=== PATIENT | female | born 1995 | race Caucasian/White ===

== ENCOUNTER → 2017-02-17 | Outpatient (CLI) | payer BC ==
[~2017-02-17] MED LIST: MEDR150I IM; MEDR1INJ3 INJ; OMEP20TA PO; OXCA600T PO; OXCA600T2 PO; TRL300
== END | disposition home or self-care (01) ==
LOC: C.PAPS 18:13
PROVIDERS: ATTEND Obstetrics & Gynecology
DX: Z01.419 Encounter for gynecological examination (general) (routine) without abnormal findings (principal); Z11.3 Encounter for screening for infections with a predominantly sexual mode of transmission

== ENCOUNTER 2017-04-14 18:54 | Emergency (ER) | payer BC ==
[~2017-04-14] VITALS: Ht 165.1 cm; Wt 57.6 kg
[~2017-04-14 18:54] MED LIST changes: -MEDR1INJ3 INJ
[2017-04-14 18:56] VITALS: TEMP 37; Ht 165.1 cm; Wt 57.6 kg
[2017-04-14] MEDS ORDERED: SODIUM CHLORIDE 0.9% 1000ML 1,000 ML IV STA (19:09)
[2017-04-14] MEDS ORDERED: MEDR1INJ3 INJ (19:31)
[2017-04-14 19:45] LABS: BASO % 0.4 %; BASO ABS # 0.02 K/uL (0-0.2); COMPLETE YES; EOS % 0.4 %; HEMATOCRIT 43.4 % (37-47); IG% 0.2 %; LYMPH % 27.2 %; LYMPH ABS # 1.26 K/uL (1.2-3.4); MEAN CELL VOLUME 95.4 fL (80-100); MEAN CORPUSCULAR HEMOGLOBIN 32.5 pg (25-34); MEAN CORPUSCULAR HGB CONC 34.1 g/dl (32-36); MEAN PLATELET VOLUME 9.9 fL (7.4-10.4); MONO % 6.3 %; NEUT % 65.5 %; PLATELET COUNT 200 K/uL (130-400); RED BLOOD COUNT 4.55 M/uL (4.2-5.4); WHITE BLOOD COUNT 4.64 K/uL (4.8-10.8)
[2017-04-14 19:56] LABS: PROTHROMBIN TIME (PATIENT) 10.6 SECONDS (9.0-12.0)
[2017-04-14 20:10] LABS: BUN/CREATININE RATIO 12.3 (10-20); CALCIUM 9.5 mg/dl (8.5-10.1); CREATININE 0.78 mg/dl (0.60-1.20); MAGNESIUM 2.4 mg/dl (1.8-2.4); POTASSIUM 3.6 mmol/L (3.5-5.1)
--- NOTE | 2017-04-14 20:10 | DIAGNOSTIC IMAGING REPORT ---
CT OF THE HEAD WITHOUT CONTRAST CLINICAL HISTORY: Seizure. COMPARISON STUDY: Head CT March 21, 2014. CT DOSE: 537.48 mGy.cm TECHNIQUE: Helical axial images of the head were obtained without IV contrast. Automated exposure control was utilized for the study. FINDINGS: No acute intracranial hemorrhage, midline shift or mass effect is present. A right temporal craniotomy is noted. There is encephalomalacia within the right temporal lobe with volume loss. Ventricular system is unremarkable. Basilar cisterns are patent. There are no extra axial collections. There are no findings to suggest acute dural sinus thrombosis or acute territorial infarct. There is no calvarial fracture. IMPRESSION: 1. No acute intracranial findings. 2. Status post right temporal craniotomy with encephalomalacia within the right temporal lobe. Electronically signed by: Mehrdad Resendez M.D. 04/14/2017 8:09 PM Dictated Date/Time: 04/14/2017 8:06 PM
[2017-04-14 20:32] LABS: PHOSPHORUS 1.4 mg/dl (2.5-4.9); THYROID STIMULATING HORMONE 2.15 uIu/ml (0.300-4.500)
[2017-04-14 20:33] LABS: URINE APPEARANCE CLEAR (CLEAR); URINE BILIRUBIN NEG (NEG); URINE COLOR YELLOW; URINE NITRITE NEG (NEG); URINE PH 5.5 (4.5-7.5); URINE SPECIFIC GRAVITY 1.012 (1.000-1.030); UROBILINOGEN NEG (NEG)
[2017-04-14 20:38] LABS: MANUAL MICROSCOPIC REQUIRED? NO; REVIEW REQ? NO
[2017-04-14] MEDS ORDERED: POT PHOSPHATE MONOBASIC W/ SOD TAB PO STA (20:56)
[2017-04-14 21:54] VITALS: BP 131/82; PULSE 91; O2SAT 98
--- NOTE | 2017-04-14 23:38 | EMERGENCY ROOM VISIT NOTE ---
History Report prepared by Lianne: [facility] Under the Supervision of: Dr. Fausto Yousif D.O. First contact with patient: 19:06 Chief Complaint: SEIZURE Stated Complaint: SEIZURE History of Present Illness The patient is a 21 year old female who presents to the Emergency Room with complaints of an episode of a seizure beginning 45 minutes ago. The patient states that she has a history of seizures beginning 4 years ago. 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 The patient reports that she has not had a seizure since her surgery 2 years ago. 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 She reports that she was able to get up and walk around afterwards and was aware of her surroundings. The patient complains of neck pain. She denies any back pain, leg pain, abdominal pain, head pain, chest pain, shortness of breath, tongue bite, incontinence, history of hypertension, diabetes, heart disease, calf swelling, recent trips, and recent surgeries. She reports that she is on a control injection. She notes that she was previously on Topamax and Keppra but stopped after the surgery. She notes that her LNMP was a few weeks ago. Source of History: patient Onset: 45 minutes ago Position: other (seizure) Symptom Intensity: 2-3 minutes Quality: other (shaking) Timing: other (episode) Associated Symptoms: + neck pain, No headache, No chest pain, No SOB, No abdominal pain, No back pain Note: She denies any leg pain, abdominal pain,tongue bite, incontinence, calf swelling. Review of Systems See HPI for pertinent positives & negatives. A total of 10 systems reviewed and were otherwise negative. Past Medical & Surgical Medical Problems: (1) ADHD (attention deficit hyperactivity disorder) (2) Epilepsy (3) Exercise-induced asthma Surgical Problems: (1) Hx of wisdom tooth extraction Family History FHx: cancer FHx: diabetes FHx: heart disease FHx: hypertension Social History Smoking Status: Never Smoker Alcohol Use: occasionally Drug Use: marijuana Marital Status: single Housing Status: lives with family Occupation Status: employed Current/Historical Medications Scheduled Medroxyprogesterone Acetate (C (Depo-Provera Contraceptiv), 150 MG INJ Q3MO Allergies Coded Allergies: No Known Allergies (Unverified , 04/14/17) Physical Exam Vital Signs Date Time Temp Pulse Resp B/P (MAP) Pulse Ox O2 Delivery O2 Flow Rate FiO2 04/14/17 21:54 91 18 131/82 98 04/14/17 20:14 100 Room Air 04/14/17 20:14 101 18 123/80 100 Room Air 04/14/17 19:25 106 04/14/17 19:11 Room Air 04/14/17 18:56 37.0 106 20 136/86 95 Room Air Physical Exam GENERAL: sitting up in bed, alert, well appearing, well nourished, no distress, non-toxic HEAD: normal cephalic, atraumatic EYE EXAM: normal conjunctiva, PERRL and EOM's grossly intact OROPHARYNX: no exudate, no erythema, lips, buccal mucosa, and tongue normal and mucous membranes are moist EARS: TMs clear b/l NECK: supple, no nuchal rigidity, no adenopathy, non-tender CHEST: stable to compression anteriorly and posteriorly LUNGS: clear to auscultation. Normal chest wall mechanics HEART: no murmurs, S1 normal and S2 normal ABDOMEN: abdomen soft, non-tender, normo-active bowel sounds, no masses, no rebound or guarding. PELVIS: stable to compression anteriorly and posteriorly BACK: Back is symmetrical on inspection and there is no deformity, no midline tenderness, no CVA tenderness. Bilateral upper trapezius tenderness on palpation. UPPER EXTREMITIES: full active and passive range of motion of all joints without tenderness to palpation LOWER EXTREMITIES: full active and passive range of motion of all joints without tenderness to palpation NEURO EXAM: Normal sensorium, cranial nerves II-XII intact, normal speech, no weakness of arms, no weakness of upper or lower extremities. Rapid alternating movements of upper extremities intact. GCS: 15. Medical Decision & Procedures ER Provider Diagnostic Interpretation: Radiology results as stated below per my review and the radiologist's interpretation: CT OF THE HEAD WITHOUT CONTRAST FINDINGS: No acute intracranial hemorrhage, midline shift or mass effect is present. A right temporal craniotomy is noted. There is encephalomalacia within the right temporal lobe with volume loss. Ventricular system is unremarkable. Basilar cisterns are patent. There are no extra axial collections. There are no findings to suggest acute dural sinus thrombosis or acute territorial infarct. There is no calvarial fracture. IMPRESSION: 1. No acute intracranial findings. 2. Status post right temporal craniotomy with encephalomalacia within the right temporal lobe. Electronically signed by: Mehrdad Resendez M.D. 04/14/2017 8:09 PM Dictated Date/Time: 04/14/2017 8:06 PM Laboratory Results 04/14/17 19:22 Red Blood Count 4.55, Mean Corpuscular Volume 95.4, Mean Corpuscular Hemoglobin 32.5, Mean Corpuscular Hemoglobin Concent 34.1, Mean Platelet Volume 9.9, Neutrophils (%) (Auto) 65.5, Lymphocytes (%) (Auto) 27.2, Monocytes (%) (Auto) 6.3, Eosinophils (%) (Auto) 0.4, Basophils (%) (Auto) 0.4, Neutrophils # (Auto) 3.04, Lymphocytes # (Auto) 1.26, Monocytes # (Auto) 0.29, Eosinophils # (Auto) 0.02, Basophils # (Auto) 0.02 04/14/17 19:22 Test 04/14/17 19:22 04/14/17 20:10 White Blood Count 4.64 K/uL (4.8-10.8) Red Blood Count 4.55 M/uL (4.2-5.4) Hemoglobin 14.8 g/dL (12.0-16.0) Hematocrit 43.4 % (37-47) Mean Corpuscular Volume 95.4 fL (80-100) Mean Corpuscular Hemoglobin 32.5 pg (25-34) Mean Corpuscular Hemoglobin Concent 34.1 g/dl (32-36) Platelet Count 200 K/uL (130-400) Mean Platelet Volume 9.9 fL (7.4-10.4) Neutrophils (%) (Auto) 65.5 % Lymphocytes (%) (Auto) 27.2 % Monocytes (%) (Auto) 6.3 % Eosinophils (%) (Auto) 0.4 % Basophils (%) (Auto) 0.4 % Neutrophils # (Auto) 3.04 K/uL (1.4-6.5) Lymphocytes # (Auto) 1.26 K/uL (1.2-3.4) Monocytes # (Auto) 0.29 K/uL (0.11-0.59) Eosinophils # (Auto) 0.02 K/uL (0-0.5) Basophils # (Auto) 0.02 K/uL (0-0.2) RDW Standard Deviation 41.3 fL (36.4-46.3) RDW Coefficient of Variation 11.8 % (11.5-14.5) Immature Granulocyte % (Auto) 0.2 % Immature Granulocyte # (Auto) 0.01 K/uL (0.00-0.02) Prothrombin Time 10.6 SECONDS (9.0-12.0) Prothromb Time International Ratio 1.0 (0.9-1.1) Activated Partial Thromboplast Time 24.7 SECONDS (21.0-31.0) Partial Thromboplastin Ratio 1.0 Anion Gap 8.0 mmol/L (3-11) Est Creatinine Clear Calc Drug Dose 101.8 ml/min Estimated GFR () 125.1 Estimated GFR (Non- 107.9 BUN/Creatinine Ratio 12.3 (10-20) Calcium Level 9.5 mg/dl (8.5-10.1) Phosphorus Level 1.4 mg/dl (2.5-4.9) Magnesium Level 2.4 mg/dl (1.8-2.4) Thyroid Stimulating Hormone (TSH) 2.150 uIu/ml (0.300-4.500) Urine Color YELLOW Urine Appearance CLEAR (CLEAR) Urine pH 5.5 (4.5-7.5) Urine Specific [place] 1.012 (1.000-1.030) Urine Protein NEG (NEG) Urine Glucose (UA) NEG (NEG) Urine Ketones NEG (NEG) Urine Occult Blood NEG (NEG) Urine Nitrite NEG (NEG) Urine Bilirubin NEG (NEG) Urine Urobilinogen NEG (NEG) Urine Leukocyte Esterase NEG (NEG) Urine Test NEG (NEG) Laboratory results per my review. Medications Administered Medications (Trade) Dose Ordered Sig/Moses Route Start Time Stop Time Status Last Admin Dose Admin Sodium Chloride 1,000 ml @ 999 mls/hr Q1H1M STAT IV 04/14/17 19:09 04/14/17 20:09 DC 04/14/17 19:35 999 MLS/HR Potassium/ Phosphorus/Sodium (Phospha 250 Neutral 155-852-130 Mg) 4 tab NOW STAT PO 04/14/17 20:56 04/14/17 20:59 DC 04/14/17 21:15 4 TAB ECG Indication: other (seizure) Rate (beats per minute): 96 Rhythm: sinus rhythm Findings: other (flipped T waves in septal leads, normal axis) Comparison ECG Date: 05-NOV-2014 Change: no significant change ED Course ED COURSE: Vital signs were reviewed and showed tachycardia The patients medical record was reviewed The above diagnostic studies were performed and reviewed. ED treatments and interventions as stated above. 1905: The patient was evaluated in room C7. A complete history and physical examination was performed. 1908: Sodium Chloride 1000 ml @ 999 mls/hr IV. 2053: I discussed the patients case with pharmacy. They recommended 4 tabs of phosphate. 2055: Potassium/Phosphorus/Sodium 4 tab PO. 2124: I reviewed the patient's case with Dr. Edis Robertson of neurology at [facility]. He recommends Zonegran. 2135: I reevaluated and updated the patient. She adamantly refuses any antiepileptics. 2143: Upon reevaluation, the patient is doing well. I discussed my findings with the patient and she understands and agrees with the treatment plan. Based on the patients age, coexisting illnesses, exam and lab findings the decision to treat as an outpatient was made. The patient remained stable while under my care. The patient appeared well at the time of discharge. Medical Decision Differential diagnosis includes etiologies such as infection, hypoglycemia, electrolyte abnormalities, cardiac sources, intracerebral event, trauma, toxicologic, neurologic, as well as others were entertained. Medication Reconciliation: I attest that I have personally reviewed the patient' s current medication list. Blood pressure screening: Patient was found to have normal blood pressure on screening and does not require follow-up. Patient is a 21-year-old female who presents the ER for a seizure. Patient has a history of seizures and had a temporal lobe surgery for removal of scar tissue and following this she has had no seizures for the past 2 years. She has been off all anticonvulsants. She reportedly had a tonic-clonic seizure lasting 2 minutes. No loss of bowel or bladder. She complete the neurologically intact currently. Labs were unremarkable with exception of her low phosphorus which was repleted find discussion with pharmacy. EKG was unremarkable. Discussed with [facility] neurology. Recommended oral anticonvulsants which patient declined adamantly. Stressed importance of following up. She was reported to state for driving. She does not have a license and is eligible to get them back in June. She understood the risk and benefits of not starting the anticonvulsants. Discussed with Pt concerning signs and symptoms to watch out for. Pt was instructed to follow up with their PCP and discussed with the patient their option to return to the ED at anytime for persistent or worsening symptoms. The appropriate anticipatory guidance and out-patient management, including indications for return to the emergency department, were explained at length to the patient and understood. Consults Time Called: [phone] Consulting Physician: Dr. Edis Robertson - neurology at [facility] Returned Call: [phone] I reviewed the patient's case with Dr. Edis Robertson of neurology at [facility]. He recommends Zonegran. Impression Primary Impression: Seizure Additional Impression: Hypophosphatemia Scribe Attestation The scribe's documentation has been prepared under my direction and personally reviewed by me in its entirety. I confirm that the note above accurately reflects all work, treatment, procedures, and medical decision making performed by me. Departure Information Dispostion Home / Self-Care Referrals No Doctor, Assigned (PCP) Forms HOME CARE DOCUMENTATION FORM, IMPORTANT VISIT INFORMATION Patient Instructions ED Seizure Recurrent, My [facility] Additional Instructions Please follow up with your primary care doctor with in the next 24 hours. Any worsening of your symptoms, please return to the ED immediately. This includes recurrent seizures, passing out, chest pain, shortness breath, or any other concerning signs or symptoms from your standpoint. Please follow up with [facility] neurology at [phone] Problem Qualifiers
== END 2017-04-14 21:54 | disposition home or self-care (01) ==
LOC: C.EDB 18:55 → C.EDC 21:54
DX: R56.9 Unspecified convulsions (principal); E83.39 Other disorders of phosphorus metabolism; F90.9 Attention-deficit hyperactivity disorder, unspecified type; G40.909 Epilepsy, unspecified, not intractable, without status epilepticus; J45.909 Unspecified asthma, uncomplicated; Z83.3 Family history of diabetes mellitus; Z82.49 Family history of ischemic heart disease and other diseases of the circulatory system; F12.90 Cannabis use, unspecified, uncomplicated

== ENCOUNTER 2018-05-27 20:04 | Emergency (ER) | payer BC ==
[~2018-05-27] VITALS: Ht 165.1 cm; Wt 60.4 kg
[~2018-05-27 20:04] MED LIST changes: -MEDR150I IM; +MEDR1INJ3 INJ; -OMEP20TA PO; -OXCA600T PO; -OXCA600T2 PO; -TRL300
[2018-05-27 20:05] VITALS: Ht 165.1 cm; Wt 60.4 kg
--- NOTE | 2018-05-27 20:19 | EMERGENCY ROOM VISIT NOTE ---
History Report prepared by Lianne: Giles Fisher Under the Supervision of: Dr. David Nunez M.D. First contact with patient: 20:11 Chief Complaint: ABDOMINAL PAIN Stated Complaint: ABDOMINAL PAINS, BLACK STOOL History of Present Illness The patient is a 23 year old female who presents to the Emergency Room with complaints of abdominal pain. The patient states she has had this pain for "awhile" but hasn't sought treatment for it. She states today at work a few hours ago she felt a "jab" to her abdomen. She notes it eventually resolved, but then felt it a few more times across her abdomen so she came in. She states the past few days she has noticed her stool has been black and notes anytime she eats she has diarrhea. The patient denies any history of abdominal surgeries. She denies any chance of . She states she is currently on her menstrual cycle. She denies any urinary symptoms. She denies any chance of a retained tampon. Source of History: patient Onset: few hours Position: abdomen Symptom Intensity: moderate Quality: stabbing Timing: intermittent Associated Symptoms: + melena, + diarrhea, No LOC, No fevers, No chills, No cough, No chest pain, No SOB, No nausea, No vomiting, No urinary symptoms Review of Systems See HPI for pertinent positives & negatives. A total of 10 systems reviewed and were otherwise negative. Constitutional: No fever, No chills Respiratory: No cough, No shortness of breath Cardiovascular: No chest pain Abdomen: + pain, + diarrhea, + problem reported (black stool), No nausea, No vomiting Genitourinary - Female: No dysuria, No urinary frequency, No urinary urgency , No urinary incontinence, No urinary retention, No hematuria Integumentary: No rash Past Medical & Surgical Medical Problems: (1) ADHD (attention deficit hyperactivity disorder) (2) Epilepsy (3) Exercise-induced asthma Surgical Problems: (1) Hx of wisdom tooth extraction Family History FHx: cancer FHx: diabetes FHx: heart disease FHx: hypertension Social History Smoking Status: Never Smoker Alcohol Use: occasionally Drug Use: marijuana Marital Status: single Housing Status: lives with family Occupation Status: employed Current/Historical Medications Scheduled Amphetamine-Dextroamphetamine 20MG (Adderall 20MG), 20 MG PO BID Docusate Sodium (Colace), 1 CAP PO BID Famotidine (Pepcid), 40 MG PO HS Ferrous Sulfate (Iron), 1 TAB PO DAILY Medroxyprogesterone Acetate (C (Medroxyprogesterone Aceta), 150 MG IM Q3MO Sennosides (Senokot), 8.6 MG PO HS Scheduled PRN Oxycodone/Acetaminophen 5MG/325MG (Percocet 5MG/325MG), 1-2 TAB PO Q4H PRN for Pain Allergies Coded Allergies: No Known Allergies (Unverified , 04/14/17) Physical Exam Vital Signs Date Time Temp Pulse Resp B/P (MAP) Pulse Ox O2 Delivery O2 Flow Rate FiO2 05/27/18 23:53 37.2 88 19 142/97 99 05/27/18 22:08 88 19 142/97 99 Room Air 05/27/18 20:56 85 05/27/18 20:05 37.2 117 20 143/94 98 Room Air Physical Exam GENERAL: Awake, alert, well-appearing, in no acute distress HENT: Normocephalic, atraumatic. Oropharynx unremarkable. EYES: Normal conjunctiva. Sclera non-icteric. NECK: Supple. No nuchal rigidity. FROM. No JVD. RESPIRATORY: Clear to auscultation. CARDIAC: Regular rate, normal rhythm. Extremities warm and well perfused. Pulses equal. ABDOMEN: Tenderness with palpation RLQ; Soft, non-distended. No rebound or guarding. No masses. RECTAL: Deferred. MUSCULOSKELETAL: Chest examination reveals no tenderness. The back is symmetrical on inspection without obvious abnormality. There is no CVA tenderness to palpation. No joint edema. LOWER EXTREMITIES: Calves are equal size bilaterally and non-tender. No edema. No discoloration. NEURO: Normal sensorium. No sensory or motor deficits noted. SKIN: No rash or jaundice noted. Medical Decision & Procedures ER Provider Diagnostic Interpretation: ULTRASOUND OF THE PELVIS CLINICAL HISTORY: Right pelvic pain. COMPARISON STUDY: No priors. TECHNIQUE: Real-time, grayscale, and color flow sonography of the pelvis is performed transabdominally. The patient declined the endovaginal examination. Images are reviewed in the transverse and longitudinal planes. FINDINGS: Uterus: The uterus is normal in size and echotexture, measuring 6.6 x 2.4 x 3.8 cm. Endometrium: The endometrium is normal in appearance, and the endometrial stripe is normal in thickness measuring up to 0.6 cm. Ovaries: The ovaries are normal in size and morphology. The right ovary measures 3.0 x 1.6 x 2.1 cm and the left ovary measures 3.7 x 1.4 x 2.3 cm. Small follicles are seen bilaterally. Normal Doppler waveforms are shown within both ovaries. Pelvis: There is no free fluid in the cul-de-sac. No concerning adnexal lesion is seen. IMPRESSION: Unremarkable transabdominal sonographic assessment of the pelvis. CT SCAN OF THE ABDOMEN AND PELVIS WITH IV CONTRAST CLINICAL HISTORY: Right lower quadrant abdominal pain. COMPARISON STUDY: Pelvic ultrasound dated 05/27/2018. KUB dated 02/22/2011. TECHNIQUE: Following the IV administration of 93 cc of Optiray 320, CT scan of the abdomen and pelvis is performed from the lung bases to the proximal femora. Images are reviewed in the axial, sagittal, and coronal planes. IV contrast was administered without complication. A dose lowering technique was utilized adhering to the principles of ALARA. CT DOSE: 266.47 mGy.cm FINDINGS: Lung bases: The heart is normal in size and without pericardial effusion. The lung bases are clear. Liver: The contrast-enhanced liver is normal in size, contour, and attenuation. There is no intrahepatic biliary ductal dilatation. The hepatic veins and portal veins are patent. A 1.7 cm hemangioma is identified in the right lobe on image #64. A subcentimeter hypodensity in the right lobe on image #46 also likely represents a small hemangioma but is too small for definitive characterization. Gallbladder: Unremarkable. Spleen: Normal in size and attenuation. Pancreas: Unremarkable. Adrenal glands: Unremarkable. Kidneys: The contrast enhanced kidneys are normal in size and without hydronephrosis. A 4 mm calcification in the right pelvis is seen along the course of the right ureter on image #346. There is mild fullness of the upstream right ureter. The kidneys enhance symmetrically. Abdominal vasculature: The abdominal aorta is normal in course and caliber. Bowel: The small bowel and colon are normal in course and caliber. The appendix is well-visualized and normal. Peritoneum: There is no intraperitoneal free air or abdominal ascites. There is a fat-containing umbilical hernia. Lymphadenopathy: None. Pelvic viscera: The bladder, uterus, and adnexa are normal as visualized. There are small bilateral ovarian follicles. Numerous phleboliths are seen in the pelvis. Skeletal structures: No lytic or blastic lesions are seen. IMPRESSION: 1. There is a 4 mm calcification in the right pelvis along the course of the distal right ureter. There is mild nonspecific fullness of the right ureter. No hydronephrosis is seen. This likely represents a phlebolith. A distal ureteral calculus is considered less likely but not excluded. Correlation with clinical findings and urinalysis will be required. 2. No additional acute infectious or inflammatory findings are suggested in the abdomen or pelvis. 3. The appendix is well-visualized and normal. 4. Additional findings as above. Laboratory Results 05/27/18 20:34 Red Blood Count 4.15, Mean Corpuscular Volume 97.3, Mean Corpuscular Hemoglobin 34.5, Mean Corpuscular Hemoglobin Concent 35.4, Mean Platelet Volume 9.5, Neutrophils (%) (Auto) 53.9, Lymphocytes (%) (Auto) 38.3, Monocytes (%) (Auto) 7.0, Eosinophils (%) (Auto) 0.2, Basophils (%) (Auto) 0.4, Neutrophils # (Auto) 2.54, Lymphocytes # (Auto) 1.81, Monocytes # (Auto) 0.33, Eosinophils # (Auto) 0.01, Basophils # (Auto) 0.02 05/27/18 20:34 Test 05/27/18 20:34 White Blood Count 4.72 K/uL (4.8-10.8) Red Blood Count 4.15 M/uL (4.2-5.4) Hemoglobin 14.3 g/dL (12.0-16.0) Hematocrit 40.4 % (37-47) Mean Corpuscular Volume 97.3 fL (80-100) Mean Corpuscular Hemoglobin 34.5 pg (25-34) Mean Corpuscular Hemoglobin Concent 35.4 g/dl (32-36) Platelet Count 193 K/uL (130-400) Mean Platelet Volume 9.5 fL (7.4-10.4) Neutrophils (%) (Auto) 53.9 % Lymphocytes (%) (Auto) 38.3 % Monocytes (%) (Auto) 7.0 % Eosinophils (%) (Auto) 0.2 % Basophils (%) (Auto) 0.4 % Neutrophils # (Auto) 2.54 K/uL (1.4-6.5) Lymphocytes # (Auto) 1.81 K/uL (1.2-3.4) Monocytes # (Auto) 0.33 K/uL (0.11-0.59) Eosinophils # (Auto) 0.01 K/uL (0-0.5) Basophils # (Auto) 0.02 K/uL (0-0.2) RDW Standard Deviation 42.9 fL (36.4-46.3) RDW Coefficient of Variation 12.0 % (11.5-14.5) Immature Granulocyte % (Auto) 0.2 % Immature Granulocyte # (Auto) 0.01 K/uL (0.00-0.02) Urine Color YELLOW Urine Appearance CLEAR (CLEAR) Urine pH 6.5 (4.5-7.5) Urine Specific Matthews 1.007 (1.000-1.030) Urine Protein NEG (NEG) Urine Glucose (UA) NEG (NEG) Urine Ketones NEG (NEG) Urine Occult Blood TRACE (NEG) Urine Nitrite NEG (NEG) Urine Bilirubin NEG (NEG) Urine Urobilinogen NEG (NEG) Urine Leukocyte Esterase NEG (NEG) Urine WBC (Auto) 1-5 /hpf (0-5) Urine RBC (Auto) 0-4 /hpf (0-4) Urine Hyaline Casts (Auto) 0 /lpf (0-5) Urine Epithelial Cells (Auto) 10-20 /lpf (0-5) Urine Bacteria (Auto) NEG (NEG) Urine Test NEG (NEG) Anion Gap 10.0 mmol/L (3-11) Est Creatinine Clear Calc Drug Dose 105.5 ml/min Estimated GFR () 131.4 Estimated GFR (Non- 113.4 BUN/Creatinine Ratio 10.0 (10-20) Calcium Level 8.9 mg/dl (8.5-10.1) Total Bilirubin 1.1 mg/dl (0.2-1) Direct Bilirubin 0.4 mg/dl (0-0.2) Aspartate Amino Transf (AST/SGOT) 50 U/L (15-37) Alanine Aminotransferase (ALT/SGPT) 32 U/L (12-78) Alkaline Phosphatase 48 U/L (45-117) Total Protein 7.7 gm/dl (6.4-8.2) Albumin 4.6 gm/dl (3.4-5.0) Lipase 88 U/L (73-393) Medications Administered Medications (Trade) Dose Ordered Sig/Moses Route Start Time Stop Time Status Last Admin Dose Admin Famotidine (Pepcid Tab) 20 mg NOW STAT PO 05/27/18 20:35 05/27/18 20:37 DC 05/27/18 20:42 20 MG Sucralfate (Carafate Tab) 1 gm NOW STAT PO 05/27/18 20:35 05/27/18 20:37 DC 05/27/18 20:42 1 GM Miscellaneous Medication (Gi Cocktail) 24 ml NOW STAT PO 05/27/18 20:35 05/27/18 20:37 DC 05/27/18 20:42 24 ML Oxycodone/ Acetaminophen (Percocet 5/ 325MG Home Pack) 1 homepack UD ONCE PO 05/28/18 00:00 05/28/18 00:01 DC 05/27/18 23:56 1 HOMEPACK ED Course Rechecks: 2210: Patient doing better. Reviewed results with her. Medical Decision Prior records/ancillary studies reviewed. Triage Nursing notes reviewed and agree them. The patient's history was concerning for abdominal pain. Differential diagnosis: Etiologies such as appendicitis, diverticulitis, PUD, biliary pathology, UTI, pancreatitis, obstruction, mesenteric ischemia, aortic pathology, infections, inflammatory bowel disease, renal colic, as well as others were entertained. This is a 23-year-old female who comes to the emergency department with multiple complaints. The patient is concerned about black and tarry stools that have been ongoing for the past several months. Patient has a history of gastric ulcer. I will note her hemoglobin here in the emergency department is normal. In addition serial abdominal examinations were performed on the patient in the emergency department and at no time did the patient exhibited surgical abdomen. I will note that the patient is not has a normal white blood cell count has a normal red blood cell count has a normal kidneys and liver profile as well as lipase. She was originally sent for an ultrasound of her ovaries which did not show any acute process. CAT scan of the abdomen pelvis is more concerning for a kidney stone. After talking with the patient further I strongly suspect that the patient was having kidney stone pain today. I am going to place the patient on Pepcid and recommend a 5 mL's of Maalox for suspected ulcer. She did get Percocet here in the emergency department. I strongly recommended follow-up with gastroenterology. Patient was in agreement with the treatment plan. Medication Reconcilliation Current Medication List: was personally reviewed by me Blood Pressure Screening Patient's blood pressure: Elevated blood pressure Blood pressure disposition: Referred to PCP Impression Primary Impression: Right lower quadrant abdominal pain Scribe Attestation The scribe's documentation has been prepared under my direction and personally reviewed by me in its entirety. I confirm that the note above accurately reflects all work, treatment, procedures, and medical decision making performed by me. Departure Information Dispostion Home / Self-Care Prescriptions Docusate Sodium (COLACE) 100 Mg Cap 1 CAP PO BID for 15 Days, #30 CAP Prov: David Nunez MD 05/27/18 Sennosides (SENOKOT) 8.6 Mg Tab 8.6 MG PO HS for 30 Days, #30 TAB Prov: David Nunez MD 05/27/18 Oxycodone/Acetaminophen 5MG/325MG (PERCOCET 5MG/325MG) Tab 1-2 TAB PO Q4H Y for Pain, #14 TAB Prov: David Nunez MD 05/27/18 Famotidine (Pepcid) 40 Mg Tab 40 MG PO HS for 30 Days, #30 TAB Prov: David Nunez MD 05/27/18 Referrals Lavelle Gloria M.D. (PCP) Patient Instructions My [facility]
[2018-05-27] MEDS ORDERED: OPTIRAY 320 IV PRN (20:30)
[2018-05-27] MEDS ORDERED: SUCRALFATE 1 GM TAB PO STA (20:35)
[2018-05-27] MEDS ORDERED: FAMOTIDINE 20 MG TAB PO STA (20:35)
[2018-05-27] MEDS ORDERED: GI COCKTAIL PO STA (20:35)
[2018-05-27] MEDS ORDERED: ALUMINUM/MAGNESIUM SUSP 30 ML UDC ONE ×2 (20:39)
[2018-05-27] MEDS ORDERED: LIDOCAINE HCL 2% VISC SOLN 20 ML UDC ONE (20:39)
[2018-05-27 20:43] LABS: BASO % 0.4 %; BASO ABS # 0.02 K/uL (0-0.2); EOS % 0.2 %; EOS ABS # 0.01 K/uL (0-0.5); HEMATOCRIT 40.4 % (37-47); HEMOGLOBIN 14.3 g/dL (12.0-16.0); IG# 0.01 K/uL (0.00-0.02); LYMPH % 38.3 %; LYMPH ABS # 1.81 K/uL (1.2-3.4); MEAN CELL VOLUME 97.3 fL (80-100); MEAN CORPUSCULAR HEMOGLOBIN 34.5 pg (25-34); MEAN CORPUSCULAR HGB CONC 35.4 g/dl (32-36); MEAN PLATELET VOLUME 9.5 fL (7.4-10.4); MONO ABS # 0.33 K/uL (0.11-0.59); NEUT % 53.9 %; NEUT ABS # 2.54 K/uL (1.4-6.5); PLATELET COUNT 193 K/uL (130-400); RED CELL DISTRIBUTION WIDTH SD 42.9 fL (36.4-46.3); WHITE BLOOD COUNT 4.72 K/uL (4.8-10.8)
[2018-05-27 21:06] LABS: ALBUMIN 4.6 gm/dl (3.4-5.0); CALCIUM 8.9 mg/dl (8.5-10.1); CREATININE 0.74 mg/dl (0.60-1.20); POTASSIUM 3.1 mmol/L (3.5-5.1); TOTAL PROTEIN 7.7 gm/dl (6.4-8.2)
[2018-05-27] MEDS ORDERED: AMPH20TA2 PO (21:11)
[2018-05-27] MEDS ORDERED: MEDR150I19 IM (21:11)
[2018-05-27] MEDS ORDERED: FERR1TAB23 PO (21:11)
--- NOTE | 2018-05-27 21:47 | DIAGNOSTIC IMAGING REPORT ---
ULTRASOUND OF THE PELVIS CLINICAL HISTORY: Right pelvic pain. COMPARISON STUDY: No priors. TECHNIQUE: Real-time, grayscale, and color flow sonography of the pelvis is performed transabdominally. The patient declined the endovaginal examination. Images are reviewed in the transverse and longitudinal planes. FINDINGS: Uterus: The uterus is normal in size and echotexture, measuring 6.6 x 2.4 x 3.8 cm. Endometrium: The endometrium is normal in appearance, and the endometrial stripe is normal in thickness measuring up to 0.6 cm. Ovaries: The ovaries are normal in size and morphology. The right ovary measures 3.0 x 1.6 x 2.1 cm and the left ovary measures 3.7 x 1.4 x 2.3 cm. Small follicles are seen bilaterally. Normal Doppler waveforms are shown within both ovaries. Pelvis: There is no free fluid in the cul-de-sac. No concerning adnexal lesion is seen. IMPRESSION: Unremarkable transabdominal sonographic assessment of the pelvis. Electronically signed by: Harvey Hernandez M.D. 05/27/2018 9:45 PM Dictated Date/Time: 05/27/2018 9:44 PM
--- NOTE | 2018-05-27 23:06 | DIAGNOSTIC IMAGING REPORT ---
CT SCAN OF THE ABDOMEN AND PELVIS WITH IV CONTRAST CLINICAL HISTORY: Right lower quadrant abdominal pain. COMPARISON STUDY: Pelvic ultrasound dated 05/27/2018. KUB dated 02/22/2011. TECHNIQUE: Following the IV administration of 93 cc of Optiray 320, CT scan of the abdomen and pelvis is performed from the lung bases to the proximal femora. Images are reviewed in the axial, sagittal, and coronal planes. IV contrast was administered without complication. A dose lowering technique was utilized adhering to the principles of ALARA. CT DOSE: 266.47 mGy.cm FINDINGS: Lung bases: The heart is normal in size and without pericardial effusion. The lung bases are clear. Liver: The contrast-enhanced liver is normal in size, contour, and attenuation. There is no intrahepatic biliary ductal dilatation. The hepatic veins and portal veins are patent. A 1.7 cm hemangioma is identified in the right lobe on image #64. A subcentimeter hypodensity in the right lobe on image #46 also likely represents a small hemangioma but is too small for definitive characterization. Gallbladder: Unremarkable. Spleen: Normal in size and attenuation. Pancreas: Unremarkable. Adrenal glands: Unremarkable. Kidneys: The contrast enhanced kidneys are normal in size and without hydronephrosis. A 4 mm calcification in the right pelvis is seen along the course of the right ureter on image #346. There is mild fullness of the upstream right ureter. The kidneys enhance symmetrically. Abdominal vasculature: The abdominal aorta is normal in course and caliber. Bowel: The small bowel and colon are normal in course and caliber. The appendix is well-visualized and normal. Peritoneum: There is no intraperitoneal free air or abdominal ascites. There is a fat-containing umbilical hernia. Lymphadenopathy: None. Pelvic viscera: The bladder, uterus, and adnexa are normal as visualized. There are small bilateral ovarian follicles. Numerous phleboliths are seen in the pelvis. Skeletal structures: No lytic or blastic lesions are seen. IMPRESSION: 1. There is a 4 mm calcification in the right pelvis along the course of the distal right ureter. There is mild nonspecific fullness of the right ureter. No hydronephrosis is seen. This likely represents a phlebolith. A distal ureteral calculus is considered less likely but not excluded. Correlation with clinical findings and urinalysis will be required. 2. No additional acute infectious or inflammatory findings are suggested in the abdomen or pelvis. 3. The appendix is well-visualized and normal. 4. Additional findings as above. Electronically signed by: Harvey Hernandez M.D. 05/27/2018 11:05 PM Dictated Date/Time: 05/27/2018 10:55 PM
[2018-05-27] MEDS ORDERED: DOCU-94 PO (23:28)
[2018-05-27] MEDS ORDERED: OXYC-57 PO (23:28)
[2018-05-27] MEDS ORDERED: FAMO40TA6 PO (23:28)
[2018-05-27] MEDS ORDERED: SENN1TAB77 PO (23:28)
[2018-05-27 23:53] VITALS: BP 142/97; PULSE 88; TEMP 37.2; O2SAT 99
[2018-05-28] MEDS ORDERED: PERCOCET HOME PACK PO ONE
== END 2018-05-27 23:54 | disposition home or self-care (01) ==
LOC: C.EDB 20:05 → C.EDA 23:54
DX: R10.31 Right lower quadrant pain (principal); R19.5 Other fecal abnormalities; R03.0 Elevated blood-pressure reading, without diagnosis of hypertension; F90.9 Attention-deficit hyperactivity disorder, unspecified type; Z87.19 Personal history of other diseases of the digestive system